=== PATIENT | male | born 1960 | race Caucasian/White ===

== ENCOUNTER → 2024-08-14 | Outpatient (CLI) | payer OTHER | LOC: LAB 11:45 → LAB SHORT 11:45 | DX: M00.9 Pyogenic arthritis, unspecified (principal); Z96.651 Presence of right artificial knee joint | CPT/HCPCS: 87070; 87075; 87205 ==

== ENCOUNTER 2024-10-15 18:13 | Emergency (ER) | payer OTHER ==
[~2024-10-15] VITALS: Ht 185.4 cm; Wt 112.9 kg
[2024-10-15] MEDS ORDERED: HYDR1TAB94 PO (21:03)
[2024-10-15] MEDS ORDERED: AMOCLA875 PO (21:03)
[2024-10-15] MEDS ORDERED: HYDROcodone 5-APAP 325 TAB PO ONE (21:10)
== END 2024-10-15 21:30 | disposition home or self-care (01) ==
LOC: ER 18:13
DX: M25.561 Pain in right knee (principal); Z96.651 Presence of right artificial knee joint; Z59.89 Other problems related to housing and economic circumstances
CPT/HCPCS: 99283; A9270